=== PATIENT | female | born 1960 | race Caucasian/White ===

== ENCOUNTER 2019-09-25 11:15 | Inpatient (IN) ==
--- NOTE | 2019-09-01 16:20 | PAT Medication Instructions ---
Medication Instructions Date of Service September 01, 2019 Home Medications ascorbic acid (vitamin C) [Vitamin C] 125 mg PO QAM calcium carb-mag oxide-vit D3 [Calcium Magnesium + D] 1 tab PO QAM cholecalciferol (vitamin D3) [Vitamin D3] 400 unit PO QAM colchicine [Colcrys] 0.6 mg PO QAM cyclobenzaprine 5 mg PO TID PRN estradiol [Vagifem] 10 mcg VAGINAL DAILY PRN insulin aspart U-100 [Novolog U-100 Insulin aspart] See Rx Instructions .ROUTE .COMPLEX levothyroxine [Synthroid] 75 mcg PO 6XWK meclizine 25 mg PO DAILY PRN mv-mn-folic ac-vit K-herb 289 [Alive Once Daily Women 50 Plus] 1 tab PO QAM naproxen sodium 220 mg PO 3XWK omega-3 fatty acids-fish oil [Fish Oil] 1 cap PO QAM ramipril [Altace] 2.5 mg PO QAM rosuvastatin [Crestor] 10 mg PO 3XWK triamcinolone acetonide [Nasacort] 1 spray INTRANASAL HS turmeric root extract 1,000 mg PO QAM vitamin E 400 unit PO QAM zolpidem [Ambien] 5 mg PO HS PRN Continue as directed levothyroxine [Synthroid] 75 mcg PO 6XWK rosuvastatin [Crestor] 10 mg PO 3XWK ASK your surgeon for instructions naproxen sodium 220 mg PO 3XWK STOP taking 2 weeks before surgery (or as soon as possible if surgery is within 2 weeks) omega-3 fatty acids-fish oil [Fish Oil] 1 cap PO QAM turmeric root extract 1,000 mg PO QAM vitamin E 400 unit PO QAM STOP taking 48 hours before surgery colchicine [Colcrys] 0.6 mg PO QAM DO NOT take the morning of surgery ascorbic acid (vitamin C) [Vitamin C] 125 mg PO QAM calcium carb-mag oxide-vit D3 [Calcium Magnesium + D] 1 tab PO QAM cholecalciferol (vitamin D3) [Vitamin D3] 400 unit PO QAM cyclobenzaprine 5 mg PO TID PRN estradiol [Vagifem] 10 mcg VAGINAL DAILY PRN [Alive Once Daily Women 50 Plus] 1 tab PO QAM ramipril [Altace] 2.5 mg PO QAM Take morning of surgery With a small sip of water, OTHERWISE NOTHING TO EAT OR DRINK AFTER MIDNIGHT: meclizine 25 mg PO DAILY PRN (if needed) Take evening before surgery cyclobenzaprine 5 mg PO TID PRN (if needed) meclizine 25 mg PO DAILY PRN (if needed) triamcinolone acetonide [Nasacort] 1 spray INTRANASAL HS zolpidem [Ambien] 5 mg PO HS PRN (if needed) Insulin Dependent Diabetic Patients *Morning of surgery, set insulin pump to basal settings- do not bolus* Other Notes If you have any questions please call us at [phone] or [phone] or [phone] or [phone]
--- NOTE | 2019-09-04 13:33 | Anesthesiology Consultation ---
Date of Service September 04, 2019 Assessment & Plan (1) Encounter for pre-operative examination: - Awaiting review preop testing (labs, EKG, CXR). - Awaiting surgeon-ordered PCP preop evaluation scheduled 09/07 (Dr. [place]). - Check [facility] AM DOS Chart Review Chart Review: Patient seen in Pre Admission Testing Teaching & Discussion Pre-Anesthesia Teaching/Discussion Notes: Instructed NPO after midnight before surgery,except medications with 15 cc of water. Medication instructions provided according to the PAT guidelines. History Surgery Operation Date: 09/25/19 09:50 Proposed Procedures p Left Total Knee Revision - Viral Roland Height/Weight Height: 5 ft 3 in Weight: 57.8 kg Allergies Allergy/AdvReac Type Severity Reaction Status Date / Time ciprofloxacin [From Cipro] Allergy Unknown N/V Verified 09/04/19 13:58 Penicillins Allergy Unknown Hives Verified 08/30/19 16:00 codeine AdvReac Unknown nausea Verified 09/04/19 13:58 Sulfa (Sulfonamide AdvReac Unknown mouth sores Verified 09/04/19 13:58 Antibiotics) Medications Home Medications Medication Instructions Recorded Confirmed Last Taken ascorbic acid (vitamin C) [Vitamin 125 mg PO QAM 08/30/19 08/30/19 Unknown C] calcium carb-mag oxide-vit D3 1 tab PO QAM 08/30/19 08/30/19 Unknown [Calcium Magnesium + D] cholecalciferol (vitamin D3) 400 unit PO QAM 08/30/19 08/30/19 Unknown [Vitamin D3] colchicine [Colcrys] 0.6 mg PO QAM 08/30/19 08/30/19 Unknown cyclobenzaprine 5 mg PO TID PRN 08/30/19 08/30/19 Unknown estradiol [Vagifem] 10 mcg VAGINAL DAILY PRN 08/30/19 08/30/19 Unknown insulin aspart U-100 [Novolog See Rx Instructions .ROUTE .COMPLEX 08/30/19 08/30/19 Unknown U-100 Insulin aspart] levothyroxine [Synthroid] 75 mcg PO 6XWK 08/30/19 08/30/19 Unknown meclizine 25 mg PO DAILY PRN 08/30/19 08/30/19 Unknown mv-mn-folic ac-vit K-herb 289 1 tab PO QAM 08/30/19 08/30/19 Unknown [Alive Once Daily Women 50 Plus] naproxen sodium 220 mg PO 3XWK 08/30/19 08/30/19 Unknown omega-3 fatty acids-fish oil [Fish 1 cap PO QAM 08/30/19 08/30/19 Unknown Oil] ramipril [Altace] 2.5 mg PO QAM 08/30/19 08/30/19 Unknown rosuvastatin [Crestor] 10 mg PO 3XWK 08/30/19 08/30/19 Unknown triamcinolone acetonide [Nasacort] 1 spray INTRANASAL HS 08/30/19 08/30/19 Unknown turmeric root extract 1,000 mg PO QAM 08/30/19 08/30/19 Unknown vitamin E 400 unit PO QAM 08/30/19 08/30/19 Unknown zolpidem [Ambien] 5 mg PO HS PRN 08/30/19 08/30/19 Unknown Past Medical History Medical History Diabetes mellitus type 1 + insulin pump 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 on ramipril for renal protection Exercise / Class Metabolic Activity III < 4 Walking/Shop/Light housework Past Surgical History Surgical History History of carpal tunnel release of both wrists History of knee replacement procedure of left knee History of knee replacement procedure of right knee History of meniscectomy of left knee History of meniscectomy of right knee History of tonsillectomy and adenoidectomy Hx of cholecystectomy Hx of hand surgery TRIGGER FINGER RELEASE Hx of laser photocoagulation of retina BOTH EYES Hx of resection of small bowel Past Anesthesia History No Hx of Anesthesia Complications (except PONV) and No Family Hx of Anesthesia Complications History of PONV History of PONV () and Hx of Motion Sickness Social History Smoking Status: Never smoker Do You Dip or Chew Tobacco: No Hx Alcohol Use: Yes Alcohol type: wine alcohol intake frequency: holidays/special occasions only Hx Substance Use: No Review of Systems Patient denies chest pain, shortness of breath, reflux, cough, wheezing, palpitations. Physical Exam Vital Signs VITALS BP 111/73 P 72 TEMP 98.3 SP02 100%RA RESP 18 PHYSICAL Full neck and c-spine range of motion. Full TMJ range of motion. TMD 3.5 finger breaths Mallampati Score 1 Dentition: broken tooth left side (possibly being repaired prior to surgery/will notify surgeon). several crowns on molars Lungs: clear throughout to auscultation Cardiac: regular rate and rhythm, no murmurs noted Spine: normal Carotid arteries: negative bruit Extremities: no edema
--- NOTE | 2019-09-04 14:55 | XRay Report ---
XR chest Pre-admission PA/Lat HISTORY: 59 years-old Female pat preoperative exam. No acute chest complaints COMPARISON: None available TECHNIQUE: PA and lateral views of the chest FINDINGS: Cardiomediastinal and hilar silhouettes are within normal limits. No pneumothorax, pleural effusion, focal airspace consolidation or overt pulmonary edema. Bones of the chest appear grossly intact. Dege nerative changes of the shoulders and spine. Cholecystectomy. IMPRESSION: No acute process. The above report was generated using voice recognition software. It may contain grammatical, syntax o r spelling errors. Electronically signed by: Daniele Pardo M.D. 09/04/2019 2:53 PM
[2019-09-04 15:42] LABS: Appearance Urine Clear (Clear); Bilirubin Urine Negative (Negative); Blood Urine Negative (Negative); Color Urine Yellow; Glucose Urine UA Negative (Negative); Ketones Urine Negative (Negative); Leukocyte Esterase Urine Negative (Negative); Nitrite Urine Negative (Negative); Protein Urine Negative (Negative); Urobilinogen Urine Negative (Negative)
[2019-09-04 15:45] LABS: Basophils # (auto) 0.03 K/uL (0-0.2); Basophils % (auto) 0.5 %; Eosinophils % (auto) 1.5 %; Hematocrit (blood only) 39.5 % (37-47); Hemoglobin 13.6 g/dL (12.0-16.0); Immature Granulocytes # (auto) 0.01 K/uL (0.00-0.02); Immature Granulocytes % (auto) 0.2 %; Lymphocytes # (auto) 1.79 K/uL (1.2-3.4); Lymphocytes % (auto) 27.5 %; Mean Corpuscular Hemoglobin 30.4 pg (25-34); Mean Corpuscular Hgb Conc 34.4 g/dL (32-36); Mean Corpuscular Volume 88.4 fL (80-100); Mean Platelet Volume 9.3 fL (7.4-10.4); Monocytes # (auto) 0.64 K/uL (0.11-0.59); Monocytes % (auto) 9.8 %; Neutrophils # (auto) 3.93 K/uL (1.4-6.5); Neutrophils % (auto) 60.5 %; Platelet Count 295 K/uL (130-400); RDW Coefficient of Variation 13.1 % (11.5-14.5); RDW Standard Deviation 42.8 fL (36.4-46.3); Red Blood Count 4.47 M/uL (4.2-5.4)
[2019-09-04 15:54] LABS: Partial Thromboplastin Ratio 0.9; Partial Thromboplastin Time 24.9 Seconds (21.0-31.0); Prothrombin Time 10.5 Seconds (9.0-12.0)
[2019-09-04 16:22] LABS: Albumin Level 3.9 gm/dl (3.4-5.0); BUN Creatinine Ratio 12.4 (10-20); Calcium 9.5 mg/dl (8.5-10.1); Creatinine Clr Calc Pharmacy 50.9 ml/min; Est GFR (African American) 74.9; Est GFR (Non-African American) 64.6; Potassium 3.7 mmol/L (3.5-5.1)
[2019-09-04 16:25] LABS: Albumin Globulin Ratio 1.3 (0.9-2); Bilirubin,Total 0.4 mg/dl (0.2-1); Globulin 3.1 gm/dl (2.5-4.0)
[2019-09-05 05:28] LABS: Estimated Average Glucose 171 mg/dl; Hemoglobin A1C 7.6 % (4.5-5.6)
--- NOTE | 2019-09-21 15:03 | History & Physical Report ---
Date of Service September 21, 2019 Assessment & Plan (1) Aseptic loosening of prosthetic knee: Plan is to admit and undergo revision left tka, both components. History of Present Illness Chief Complaint: left knee pain Primary Care Provider: DO Ramsey Reyna female had bilateral tka years ago. Has been doing well, now with loose tka, left. Workup for infection was negative. Right knee doing well with no pain. Pain has been persistent therefore decided to undergo revision surgery. Allergies Allergy/AdvReac Type Severity Reaction Status Date / Time Penicillins Allergy Unknown Hives Verified 08/30/19 16:00 ciprofloxacin [From Cipro] AdvReac Unknown N/V Verified 09/20/19 15:18 codeine AdvReac Unknown nausea Verified 09/04/19 13:58 Sulfa (Sulfonamide AdvReac Unknown mouth sores Verified 09/04/19 13:58 Antibiotics) Home Medications Home Medications Medication Instructions Recorded Confirmed Type ascorbic acid (vitamin C) [Vitamin 125 mg PO QAM 08/30/19 08/30/19 History C] calcium carb-mag oxide-vit D3 1 tab PO QAM 08/30/19 08/30/19 History [Calcium Magnesium + D] cholecalciferol (vitamin D3) 400 unit PO QAM 08/30/19 08/30/19 History [Vitamin D3] colchicine [Colcrys] 0.6 mg PO QAM 08/30/19 08/30/19 History cyclobenzaprine 5 mg PO TID PRN 08/30/19 08/30/19 History estradiol [Vagifem] 10 mcg VAGINAL DAILY PRN 08/30/19 08/30/19 History insulin aspart U-100 [Novolog See Rx Instructions .ROUTE .COMPLEX 08/30/19 08/30/19 History U-100 Insulin aspart] levothyroxine [Synthroid] 75 mcg PO 6XWK 08/30/19 08/30/19 History meclizine 25 mg PO DAILY PRN 08/30/19 08/30/19 History mv-mn-folic ac-vit K-herb 289 1 tab PO QAM 08/30/19 08/30/19 History [Alive Once Daily Women 50 Plus] naproxen sodium 220 mg PO 3XWK 08/30/19 08/30/19 History omega-3 fatty acids-fish oil [Fish 1 cap PO QAM 08/30/19 08/30/19 History Oil] ramipril [Altace] 2.5 mg PO QAM 08/30/19 08/30/19 History rosuvastatin [Crestor] 10 mg PO 3XWK 08/30/19 08/30/19 History triamcinolone acetonide [Nasacort] 1 spray INTRANASAL HS 08/30/19 08/30/19 History turmeric root extract 1,000 mg PO QAM 08/30/19 08/30/19 History vitamin E 400 unit PO QAM 08/30/19 08/30/19 History zolpidem [Ambien] 5 mg PO HS PRN 08/30/19 08/30/19 History Past Med/Surg History Medical History Diabetes mellitus type 1 + insulin pump 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 on ramipril for renal protection Surgical History History of carpal tunnel release of both wrists History of knee replacement procedure of left knee History of knee replacement procedure of right knee History of meniscectomy of left knee History of meniscectomy of right knee History of tonsillectomy and adenoidectomy Hx of cholecystectomy Hx of hand surgery TRIGGER FINGER RELEASE Hx of laser photocoagulation of retina BOTH EYES Hx of resection of small bowel Social History Preferred Language: Dominican Communication Ability: Effective Beliefs That Will Affect Care: None Current Living Situation: Spouse Feels Safe at Home: Yes Safety Concerns: Feels Safe At This Time Smoking Status: Never smoker Do You Dip or Chew Tobacco: No ; Second Hand Exposure: No ; Hx Alcohol Use: Yes Alcohol type: wine Hx Substance Use: No Review of Systems All systems reviewed & are unremarkable except as noted in HPI & below Physical Exam Constitutional: WD/WN, vitals as above Respiratory: normal respiratory effort, lungs clear to auscultation Cardiovascular: RRR, no murmur, no edema Gastrointestinal (Abdomen): normal bowel sounds, soft, nontender, no hepatosplenomegaly Musculoskeletal: Knee: + effusion, + surgical incision, + knee ROM with crepitation and + varus laxity
[~2019-09-25 11:15] MED LIST: ACETAMINOPHEN 500 MG TAB PO SCH; BUPIVACAINE 0.5 % 5 MG/1 ML PF 10ML VIAL ONE; BUPIVACAINE/EPINEPHRINE 0.25% 1:200,000 30 ML VIAL ONE; CEFAZOLIN 1000MG 1,000 MG/7.5 ML SYR IV SCH; CeleBREX 200 MG CAP PO SCH; FAMOTIDINE 20 MG TAB PO SCH; LR 15ML/HR IV SCH; LR 60ML/HR IV SCH; METOCLOPRAMIDE HCL 10 MG TABLET PO SCH; MIDAZOLAM HCL 1 MG/ML 2ML VIAL ONE; ROPIVACAINE 0.5% HCL/PF 150 MG, BUPIVACAINE 0.5% MPF 30 ML, EPINEPHrine 30MG/30ML (OR U... INSTIL SCH; TRANEXAMIC ACID 1,000 MG **IV Intra-op IV SCH; TRANEXAMIC ACID 1,000 MG **IV Pre-op IV SCH; dexAMETHasone 4 MG TAB PO SCH; fentaNYL citrate 100 MCG/2 ML VIAL ONE
[2019-09-25] MEDS ORDERED: ONDANSETRON INJ 2 MG/ML 2 ML VIAL ONE (11:25)
[2019-09-25] MEDS ORDERED: PROPOFOL IV EMULSION 10 MG/ML 20 ML VIAL IV ONE ×2 (11:25→14:44)
[2019-09-25] MEDS ORDERED: LIDOCAINE HCL 2% 2 ML VIAL/AMP(20MG/ML) INFIL ONE (11:25)
[2019-09-25] MEDS ORDERED: BACITRACIN INJ 50,000 UNIT VIAL ONE (11:33)
[2019-09-25] MEDS ORDERED: ORTHO JOINT ANESTHETIC ONE (11:33)
[2019-09-25] MEDS ORDERED: CEFAZOLIN 1000MG 1,000 MG/7.5 ML SYR IV SCH (12:08)
--- NOTE | 2019-09-25 12:11 | History & Physical Bridge Note ---
Date of Service September 25, 2019 History & Physical Bridge Note I have examined the patient, reviewed the History & Physical and in the interval since the performance of the History & Physical I have noted the following changes of clinical significance: no changes noted
[2019-09-25] MEDS ORDERED: SCOPOLAMINE 1.5 MG TDSY ONE (12:23)
[2019-09-25] MEDS ORDERED: SCOPOLAMINE 1.5 MG TDSY TD SCH (12:29)
[2019-09-25] MEDS ORDERED: ePHEDrine sulfate 50 MG/ML AMP IV PRN (13:00)
[2019-09-25] MEDS ORDERED: ATROPINE SULFATE 0.1 MG/ML 10ML SYR IV PRN (13:00)
[2019-09-25] MEDS ORDERED: ONDANSETRON INJ 2 MG/ML 2 ML VIAL IV PRN ×2 (13:00→16:15)
[2019-09-25] MEDS ORDERED: MIDAZOLAM HCL 1 MG/ML 2ML VIAL ONE (13:32)
--- NOTE | 2019-09-25 14:47 | Post Operative Brief Note ---
Immediate Post Op Note v1 Date of Surgery September 25, 2019 Pre & Post Diagnosis Operation Date: 09/25/19 14:10 Pre-Op Diagnosis: Left Knee Complications D/T Internal Orthopedic Device/Aseptic Loosening left total knee Post-Op Diagnosis: Left Knee Complications D/T Internal Orthopedic Device/aseptic loosening left total knee I identified the patient and participated in the time-out.: Yes Procedure Operation Date: 09/25/19 14:10 Actual Procedures p Left Total Knee Revision(Left) Both components - Viral Roland Surgeon Viral Roland Inside Sales Advertising Executive Alli Diego PAc Estimated Blood Loss 20 Findings Consistent with Post-Op Diagnosis
--- NOTE | 2019-09-25 14:55 | Operative Report ---
Post Operative Report Pre & Post Diagnosis Operation Date: 09/25/19 14:10 Pre-Op Diagnosis: Left Knee Complications D/T Internal Orthopedic Device/Aseptic Loosening left total knee Post-Op Diagnosis: Left Knee Complications D/T Internal Orthopedic Deviceaseptic loosening left total knee I identified the patient and participated in the time-out.: Yes Procedure Operation Date: 09/25/19 14:10 Actual Procedures p Left Total Knee Revision(Left) Both components- Viral Roland Surgeon Viral Roland Corporate Services Manager Alli Diego PAc Estimated Blood Loss 20 Findings Consistent with Post-Op Diagnosis Specimens none Complications none Disposition Accompanied Patient To Recovery: No Disposition: Recovery Room Description of Procedure IMPLANTS USED: Urban triathlon size 2 TS femoral component with a 15 x 100 mm cemented stem, multiple augments distally and posteriorly, a size 9 TS polyethylene, a size 1 universal baseplate with a bilobed metaphyseal augment, with a 75 mm stem. (For a Urban knee) INDICATIONS: Mrs. Mancia is a pleasant (male/female) who has unfortunately failed all forms of conservative measures. She was identified of having a loose femur and tibia component, patient had bilateral total knee arthroplasty by myself approximately 11 years ago. Work-up for infection was negative which consisted of sed rate and CRP and aspiration of fluid left knee. Patient does have history of significant rheumatoid arthritis and type 1 diabetes. Because of her persistent pain and difficulty with ambulation she therefore, they have decided to undergo elective surgical intervention. All risks and benefits of the surgery were discussed with the patient and the family in entirety. PROCEDURE: The patient was brought to the operating room and properly identified by myself, anesthesia, and staff. Patient was given a spinal anesthesia and placed on the operating table in the supine position. Tourniquets were applied to the left upper thigh. The leg was then prepped and draped in usual sterile fashion. We made a standard midline approach over the patella and dissected down through the subcutaneous tissue to identify the capsule and performed a medial capsulotomy with the patella everted and the knee flexed. Her skin was very thin but we did make sure that we made full-thickness skin flaps on the medial and lateral side. Upon visual inspection there was some slight clear fluid otherwise no pus noted anywhere, then removed all the scar tissue from the medial and lateral gutters and from the suprapatellar pouch. I could easily see some scar tissue growing underneath the anterior flange of the femoral component. I then removed the polyethylene and on inspection of the polyethylene it appeared quite healthy. Then placed retractors on the medial lateral side and posteriorly to bring the tibia anteriorly and then again using multiple flexible osteotomes curettes and a TPS saw I was able to easily remove the tibia and the femur. I then put in a airline pilot/first officer hole in the femur, put the IM cutting guide into place in and began to ream to the appropriate size. I then put the cutting guide to place which was a size to then made appropriate cleanup cuts on the tibia the distal and posterior side which were size 10 mm augments. Then continue with the tibia reamed the appropriate size and then using the metaphyseal augment reamer down to a size C. Then made a cleanup cut off at this of approximately 2 mm off of the proximal tibia. There appeared to be a small defect present on the medial side approximately 5 mm therefore decided to use the bilobed metaphyseal augment. The tibia measured a size 1. We used the tibial punch then put the trial components into place. We had very good range of motion, excellent stability, and excellent patella tracking. We removed the trial components and irrigated the wound. We impacted the components in place using antibiotic cement. All excess cement was removed. We then irrigated the wound once more. We closed the capsule with 0 PDS suture, deep dermis with 2-0 Vicryl, and finally the skin with merlin. A sterile dressing was applied. The patient was taken to the recovery room in stable condition. Due to the complex nature of the procedure, the entire surgery was performed with the operational assistance of Alli Gonzalez PA-C. The inventory control assistant was under direct supervision, was involved in the actual performance of all aspects of the surgical procedure including hemostasis, tissue retraction and incision, instrument management, patient positioning, and wound closure. I attest to the content of the Intraoperative Record and any orders documented therein. Any exceptions are noted below.
--- NOTE | 2019-09-25 15:43 | Anesthesiology Progress Note ---
Date of Service September 25, 2019 Anesthesia Post Procedure Vital Signs Vital Signs: Temp Pulse Pulse Resp BP Pulse Ox 09/25/19 15:40 100 H 16 105/47 L 99 09/25/19 15:30 101 H 18 106/47 L 100 09/25/19 15:24 36.9 C 101 H 20 96/66 L 100 09/25/19 11:47 36.5 C 96 H 18 147/83 H 97 Transfer of Care Handoff Completed per policy Notes Mental Status: alert / awake / arousable and participated in evaluation Nausea / Vomiting: adequately controlled Pain: adequately controlled Airway Patency, RR, SpO2: stable & adequate BP & HR: stable & adequate Hydration State: stable & adequate Neuraxial Anesthesia: was administered and sensory block is resolving Anesthetic Complications: no major complications apparent and Pt Satisfied with anesthetic care
[2019-09-25] MEDS ORDERED: CHECK SCOPOLAMINE PATCH PLACEMENT SCH (16:00)
[2019-09-25] MEDS ORDERED: MAGNESIUM HYDROXIDE SUSP 30 ML UDC PO PRN (16:15)
[2019-09-25] MEDS ORDERED: NALOXONE HCL 0.4 MG/1 ML VIAL/CARP IV PRN (16:15)
[2019-09-25] MEDS ORDERED: INSULIN ASPART PER UNIT SQ SCH (16:15)
[2019-09-25] MEDS ORDERED: BISACODYL 10 MG SUPP PR PRN (16:15)
[2019-09-25] MEDS ORDERED: ZOLPIDEM TARTRATE 5 MG TAB PO PRN (16:15)
[2019-09-25] MEDS ORDERED: METOCLOPRAMIDE HCL INJ 5 MG/ML 2 ML VIAL IV PRN (16:15)
[2019-09-25] MEDS ORDERED: Nursing to Pharmacy Communication ONE (16:16)
[2019-09-25] MEDS ORDERED: CYCLOBENZAPRINE HCL 10 MG TAB PO PRN (16:17)
[2019-09-25] MEDS ORDERED: MECLIZINE HCL 25 MG TAB PO PRN (16:32)
[2019-09-25] MEDS ORDERED: PHARMACY GLYCEMIC MGMT CONSULT PRN (16:50)
[2019-09-25] MEDS ORDERED: GLUCAGON FOR INJ 1 MG VIAL SQ PRN (17:00)
[2019-09-25] MEDS ORDERED: CARBOHYDRATES FOR HYPOGLYCEMIA PO PRN (17:00)
[2019-09-25] MEDS ORDERED: GLUCOSE 10 TABS/TUBE PO PRN (17:00)
[2019-09-25] MEDS ORDERED: DEXTROSE 50% 50 ML SYRINGE IV PRN (17:00)
[2019-09-25] MEDS ORDERED: GLUCOSE 40% GEL 15 GM TUBE PO PRN (17:00)
[2019-09-25] MEDS ORDERED: INSULIN ASPART 100 UNITS/ML VIAL SC PRN (17:00)
[2019-09-25] MEDS: SODIUM CHLORIDE 0.9% 1000ML 1,000 ML IV SCH (17:41)
[2019-09-25] MEDS: NovoLOG INSULIN PUMP SCH ×2 (18:20→21:47)
[2019-09-25] MEDS ORDERED: TRIAMCINOLONE ACET NASAL SPRAY 10.8ML BTL SCH (21:00)
[2019-09-25] MEDS ORDERED: SENNA 8.6 MG TAB PO SCH (21:00)
[2019-09-25] MEDS ORDERED: ROSUVASTATIN CALCIUM 10 MG TAB PO SCH (21:00)
[2019-09-25] MEDS: DOCUSATE SODIUM 100 MG CAP PO SCH (21:19)
[2019-09-25] MEDS: ACETAMINOPHEN 500 MG TAB PO SCH (21:20)
[2019-09-25] MEDS: ASPIRIN 81 MG ECTAB PO SCH (21:22)
[2019-09-25] MEDS: CEFAZOLIN 2000MG 2,000 MG/15 ML SYR IV SCH (21:27)
[2019-09-26] MEDS: SODIUM CHLORIDE 0.9% 1000ML 1,000 ML IV SCH (02:24)
[2019-09-26] MEDS ORDERED: Nursing to Pharmacy Communication ONE (02:28)
[2019-09-26] MEDS: ACETAMINOPHEN 500 MG TAB PO SCH (05:47)
[2019-09-26] MEDS: CEFAZOLIN 2000MG 2,000 MG/15 ML SYR IV SCH (05:47)
[2019-09-26] MEDS ORDERED: LEVOTHYROXINE SODIUM 75 MCG TABLET PO SCH (06:30)
[2019-09-26 07:07] LABS: Hematocrit (blood only) 33.6 % (37-47); Hemoglobin 11.6 g/dL (12.0-16.0); Mean Corpuscular Hemoglobin 30.4 pg (25-34); Mean Corpuscular Hgb Conc 34.5 g/dL (32-36); Mean Platelet Volume 9.2 fL (7.4-10.4); Platelet Count 236 K/uL (130-400); RDW Coefficient of Variation 12.7 % (11.5-14.5); Red Blood Count 3.82 M/uL (4.2-5.4); White Blood Count 14.66 K/uL (4.8-10.8)
[2019-09-26 07:37] LABS: BUN Creatinine Ratio 20.4 (10-20); Calcium 8.5 mg/dl (8.5-10.1); Creatinine Clr Calc Pharmacy 43.1 ml/min; Est GFR (African American) 61.4; Potassium 4.5 mmol/L (3.5-5.1)
[2019-09-26] MEDS: OXYCODONE HCL IR 5 MG TAB (IMMEDIATE RELEASE) PO PRN ×2 (08:05→13:24)
--- NOTE | 2019-09-26 08:11 | Anesthesiology Progress Note ---
Date of Service September 26, 2019 Anesthesia Post Procedure Vital Signs Vital Signs: Temp Pulse Pulse Pulse Resp BP Pulse Ox 09/26/19 07:33 36.6 C 64 16 105/63 98 09/26/19 04:00 36.5 C 65 16 111/62 98 09/25/19 23:30 36.5 C 71 16 93/55 L 95 09/25/19 19:00 36.6 C 83 17 107/66 96 09/25/19 18:00 36.5 C 95 H 17 111/62 100 09/25/19 16:59 36.5 C 101 H 18 100/62 100 09/25/19 16:30 37.1 C 102 H 18 96/56 L 97 09/25/19 16:00 36.6 C 103 H 16 100/52 L 99 09/25/19 15:50 36.9 C 100 H 16 100/45 L 99 09/25/19 15:40 100 H 16 105/47 L 99 09/25/19 15:30 101 H 18 106/47 L 100 09/25/19 15:24 36.9 C 101 H 20 96/66 L 100 09/25/19 11:47 36.5 C 96 H 18 147/83 H 97 Notes Mental Status: alert / awake / arousable and participated in evaluation Patient Amnestic to Procedure: Yes Nausea / Vomiting: adequately controlled Pain: adequately controlled Airway Patency, RR, SpO2: stable & adequate BP & HR: stable & adequate Hydration State: stable & adequate Neuraxial Anesthesia: was administered and sensory block resolved Anesthetic Complications: no major complications apparent and Pt Satisfied with anesthetic care
--- NOTE | 2019-09-26 08:30 | Orthopedic Progress Note ---
Date of Service September 26, 2019 Assessment & Plan (1) Aseptic loosening of prosthetic knee: Postop day 1 status post left revision TKA. Mild leukocytosis-likely due to surgical stress and preoperative steroids. PT/OT protocols. Weightbearing as tolerated. DVT prophylaxis-aspirin twice daily, AV impulse boots. Pain management as written Discharge planning-home health services upon discharge Subjective Postop day 1 status post revision left TKA. Patient currently sitting up in bed awake and alert. He wants to get out of the chair for her breakfast. No overt pain in the knee but she states that she has had some muscle spasms off and on during the night which she normally gets at home. This is not been accentuated. Denies shortness of breath, chest pain, lightheadedness. She is hoping to go home today. Physical Exam Physical Exam: Dressings are clean, dry, and intact. Calves are soft and nontender. Neurovascular is intact. Toes are mobile. She has good dorsiflexion and plantarflexion. Results & Data Vital Signs (Past 12 Hours) Vital Signs Temp Pulse Resp BP Pulse Ox 09/26/19 07:33 36.6 C 64 16 105/63 98 09/26/19 04:00 36.5 C 65 16 111/62 98 09/25/19 23:30 36.5 C 71 16 93/55 L 95 Laboratory Results Laboratory Results WBC 14.66 K/uL (4.8-10.8) H 09/26/19 06:19 RBC 3.82 M/uL (4.2-5.4) L 09/26/19 06:19 Hgb 11.6 g/dL (12.0-16.0) L 09/26/19 06:19 Hct 33.6 % (37-47) L 09/26/19 06:19 MCV 88.0 fL (80-100) 09/26/19 06:19 MCH 30.4 pg (25-34) 09/26/19 06:19 MCHC 34.5 g/dL (32-36) 09/26/19 06:19 RDW Std Deviation 41.0 fL (36.4-46.3) 09/26/19 06:19 RDW Coeff of Chanel 12.7 % (11.5-14.5) 09/26/19 06:19 Plt Count 236 K/uL (130-400) 09/26/19 06:19 MPV 9.2 fL (7.4-10.4) 09/26/19 06:19 Immature Gran % (Auto) 0.2 % 09/04/19 14:10 Neut % (Auto) 60.5 % 09/04/19 14:10 Lymph % (Auto) 27.5 % 09/04/19 14:10 [place] % (Auto) 9.8 % 09/04/19 14:10 Eos % (Auto) 1.5 % 09/04/19 14:10 Baso % (Auto) 0.5 % 09/04/19 14:10 Immature Gran # (Auto) 0.01 K/uL (0.00-0.02) 09/04/19 14:10 Neut # (Auto) 3.93 K/uL (1.4-6.5) 09/04/19 14:10 Lymph # (Auto) 1.79 K/uL (1.2-3.4) 09/04/19 14:10 [place] # (Auto) 0.64 K/uL (0.11-0.59) H 09/04/19 14:10 Eos # (Auto) 0.10 K/uL (0-0.5) 09/04/19 14:10 Baso # (Auto) 0.03 K/uL (0-0.2) 09/04/19 14:10 PT 10.5 Seconds (9.0-12.0) 09/04/19 14:10 INR 1.0 (0.9-1.1) 09/04/19 14:10 APTT 24.9 Seconds (21.0-31.0) 09/04/19 14:10 PTT Ratio 0.9 09/04/19 14:10 Sodium 134 mmol/L (136-145) L 09/26/19 06:19 Potassium 4.5 mmol/L (3.5-5.1) 09/26/19 06:19 Chloride 103 mmol/L (98-107) 09/26/19 06:19 Carbon Dioxide 24 mmol/L (21-32) 09/26/19 06:19 Anion Gap 7.0 (3-11) 09/26/19 06:19 BUN 23 mg/dl (7-18) H 09/26/19 06:19 Creatinine 1.12 mg/dl (0.6-1.2) 09/26/19 06:19 Est Cr Clr Drug Dosing 43.1 ml/min 09/26/19 06:19 Est GFR ( Amer) 61.4 09/26/19 06:19 Est GFR (Non-Af Amer) 53.0 09/26/19 06:19 BUN/Creatinine Ratio 20.4 (10-20) H 09/26/19 06:19 Glucose 205 mg/dl (70-99) H 09/26/19 06:19 POC Glucose 215 (70-99) H 09/26/19 07:56 Estimat Average Glucose 171 mg/dl 09/04/19 14:10 Hemoglobin A1c 7.6 % (4.5-5.6) H 09/04/19 14:10 Calcium 8.5 mg/dl (8.5-10.1) 09/26/19 06:19 Total Bilirubin 0.4 mg/dl (0.2-1) 09/04/19 14:10 AST 19 U/L (15-37) 09/04/19 14:10 ALT 31 U/L (12-78) 09/04/19 14:10 Alkaline Phosphatase 79 U/L (45-117) 09/04/19 14:10 Total Protein 7.0 gm/dl (6.4-8.2) 09/04/19 14:10 Albumin 3.9 gm/dl (3.4-5.0) 09/04/19 14:10 Globulin 3.1 gm/dl (2.5-4.0) 09/04/19 14:10 Albumin/Globulin Ratio 1.3 (0.9-2) 09/04/19 14:10 Urine Color Yellow 09/04/19 Unknown Urine Appearance Clear (Clear) 09/04/19 Unknown Urine pH 7.0 (4.5-7.5) 09/04/19 Unknown Ur Specific [place] 1.010 (1.000-1.030) 09/04/19 Unknown Urine Protein Negative (Negative) 09/04/19 Unknown Urine Glucose (UA) Negative (Negative) 09/04/19 Unknown Urine Ketones Negative (Negative) 09/04/19 Unknown Urine Blood Negative (Negative) 09/04/19 Unknown Urine Nitrite Negative (Negative) 09/04/19 Unknown Urine Bilirubin Negative (Negative) 09/04/19 Unknown Urine Urobilinogen Negative (Negative) 09/04/19 Unknown Ur Leukocyte Esterase Negative (Negative) 09/04/19 Unknown Nasal Screen MRSA (PCR) Negative (Negative) 09/04/19 Unknown Blood Type A Positive 09/25/19 11:59 Antibody Screen NEGATIVE 09/25/19 11:59 Crossmatch See Detail 09/25/19 11:59
[2019-09-26] MEDS ORDERED: COLCHICINE 0.6 MG TAB PO SCH (09:00)
[2019-09-26] MEDS ORDERED: ENALAPRIL MALEATE 10 MG TAB PO SCH (09:00)
[2019-09-26] MEDS: DOCUSATE SODIUM 100 MG CAP PO SCH (09:13)
[2019-09-26] MEDS: NovoLOG INSULIN PUMP SCH ×2 (09:14→12:32)
[2019-09-26] MEDS: ASPIRIN 81 MG ECTAB PO SCH (09:14)
--- NOTE | 2019-09-26 11:28 | Pharmacy Report ---
Glycemic Control Consultation - Date of Service September 26, 2019 - Scope Scope: Glycemic Pharmacist consulted by Dr Roland on 09/26 for glycemic control and to write orders per [facility] inpatient glycemic control protocol - Objective Weight: 51.8 kg Accuchecks BSG (last 24hrs): 09/25/19 09/25/19 09/25/19 11:50 17:17 20:37 Glucose POC Glucose 81 274 H 221 H 09/26/19 09/26/19 06:19 07:56 Glucose 205 H POC Glucose 215 H Laboratory Data (last 24hrs): 09/26/19 06:19 Potassium 4.5 Carbon Dioxide 24 Anion Gap 7.0 Creatinine 1.12 Est Cr Clr Drug Dosing 43.1 HbA1c: Hemoglobin A1c 7.6 % (4.5-5.6) H 09/04/19 14:10 - Recent Pertinent Medications Outpatient Anti-diabetic Regimen: * Novolog pump basal/bolus settings: CF 100, goal 90-150 9224-7989 - 0.4 6610-1656 - 0.325 2432-8085 - 0.45 5284-0571 - 0.475 5009-0301 - 0.450 9082-0072 - 0.35 6498-2532 - 0.425 * Bolus settings: [id number] - 1:20 3276-2399 - 1:22 7961-4770 - 1:20 4671-4804 - 1:25 3708-9837 - 1:20 * A1c = 7.6 % 09/04/19 Risk Factors for Insulin Resistance: * Steroids: received dex 8 mg po on 09/25 * Recent Surgery: POD 1 * Diet: T1DM - Assessment & Plan Assessment & Plan: ASSESSMENT: * 59 year old female now s/p knee revision - Type 1 diabetic managed on insulin pump at home. * Pharmacy consulted for glycemic management postop * Yesterday AM pump adjusted to 75% of basal then to 60% 1-2 hrs preop and then turned off for surgery * Post surgery BSGs trending up as pump was disconnected/also likely from steroids * BSGs trending down this morning, anticipate steroids to be wearing off today * life educator in to talk with patient today. Patient has been on steroids in the past and feels comfortable with adjusting her own pump settings. Temp basal increased today to 125% (around 1100) to provide additional coverage while steroids wearing off. Thank you health educator for assistance * Also went and talked with patient. Feel comfortable that she is able to adjust pump settings herself. Told her that we will be monitoring her in the background and if she were to have any questions to let us know. PLAN FOR INPATIENT GLYCEMIC CONTROL: * Pump - continue patient self management PLAN FOR DISCHARGE: * A1C ~7.6% * A reasonable A1C goal for many non- adults is A1c less than 7% * A1C closer to target goal/appropriate - would not make any changes at discharge * Please note that the plan above was derived based on current level of insulin resistance and hospital stress. These recommendations are appropriate for inpatient admission only. Plan of care upon discharge will need to be reassessed to avoid potential outpatient hypo/hyperglycemia. Thank you.
--- NOTE | 2019-09-27 10:51 | Discharge Summary ---
Date of Service September 27, 2019 Admission HPI Per Admitting Provider Ramsey female had bilateral tka years ago. Has been doing well, now with loose tka, left. Workup for infection was negative. Right knee doing well with no pain. Pain has been persistent therefore decided to undergo revision surgery. Admission Exam Per Admitting Provider Physical Exam Constitutional: WD/WN, vitals as above Respiratory: normal respiratory effort, lungs clear to auscultation Cardiovascular: RRR, no murmur, no edema Gastrointestinal (Abdomen): normal bowel sounds, soft, nontender, no hepatosplenomegaly Musculoskeletal: Knee: + effusion, + surgical incision, + knee ROM with crepitation and + varus laxity Principal Diagnosis Left Knee Complications D/T Internal Orthopedic Deviceaseptic loosening left total knee Discharge Exam Physical Exam: Dressings are clean, dry, and intact. Calves are soft and nontender. Neurovascular is intact. Toes are mobile. She has good dorsiflexion and plantarflexion. Discharge Data Allergies Allergy/AdvReac Type Severity Reaction Status Date / Time Penicillins Allergy Unknown Hives Verified 09/25/19 11:40 ciprofloxacin [From Cipro] AdvReac Unknown N/V Verified 09/25/19 11:40 codeine AdvReac Unknown nausea Verified 09/25/19 11:40 Sulfa (Sulfonamide AdvReac Unknown mouth sores Verified 09/25/19 11:40 Antibiotics) Consultations 09/25/19 16:15 Consult Case Management - Discharge Planning Routine Procedures Performed Operation Date: 09/25/19 14:10 Actual Procedures p Left Total Knee Revision(Left) - Viral Roland Ordered Studies 09/25/19 05:00 US - OR guided needle placemen Routine Hospital Course (1) Aseptic loosening of prosthetic knee: Patient was admitted on the above-noted date and had the above-noted procedure performed which she tolerated well. On her first postoperative day, she was sitting up in her bed awake and alert. She was hoping to get out into her chair for breakfast. Pain was controlled but she was having some mild muscle spasms off and on during the night which she normally gets at home. These have not worsened. She denies shortness of breath, chest pain, lightheadedness. Vital signs are stable and she was afebrile. Hemoglobin was 11.6. She was started on PT and OT protocols and continued on DVT prophylaxis and pain management. She was planning for home health services upon discharge. She was seen later in the day and was progressing well with her physical therapy pain was controlled vitals are stable and it was felt she could be discharged home. Total Time Total Time Spent Total Time Spent (In Minutes): 5 Discharge Plan Discharge Items Patient Disposition: Home - Home Health Services Reason For Visit: Left Knee Complications D/T Internal Orthopedic De Discharge Diagnosis: Aseptic loosening left TKA Activity: Per Instructions section Weightbearing: Left weightbearing Weightbearing Comment: As tolerated with walker Non-emergency contact: Surgeon Call non-emergency contact if: your pain is not controlled, your temperature is above 101.5, your wound has increased redness and your wound has increased drainage Follow-up/Referrals: Henna Murray, [Primary Care Provider] - Diet: Carb Count or DM1 Addtl Attending Provider Instructions: Please follow Dr. Sehridan's total knee arthroplasty instructions. These will be given to at the time of your discharge. Follow-up with Dr. Sheridan in 2 weeks. Please call for appointment if one has not been made for you. [phone] SOMMER dressing - This is a large suction dressing covering your incision. This will help pull any excess drainage from the wound and allow your incision to heal properly. You may shower with this if you can keep the unit outside of the shower. If any bleeding or leakage is noted please call your doctor's office. This will remain on your incision for 7 days and then should be removed. This can be done yourself or by the home nursing staff if applicable. The entire unit is disposable once removed. Once removed, keep incision clean and dry. If redness or drainage is noted, please call your surgeon. Pending Studies at Discharge: No Stand-Alone Forms: [facility] TestCred, Opioid Pain Management, Smoking Cessation Medications and DC Order Prescriptions: New aspirin [Ecotrin Low Strength] 81 mg Tablet,Delayed Release (Dr/Ec) 81 mg PO BID 30 Days Qty: 60 RF: 0 acetaminophen [Tylenol Extra Strength] 500 mg Tablet 1,000 mg PO Q8 14 Days Qty: 84 RF: 0 oxycodone 5 mg Tablet 5 mg PO Q4H PRN (Reason: pain) Qty: 30 RF: 0 sennosides [Senokot] 8.6 mg Tablet 17.2 mg PO HS PRN (Reason: constipation) Qty: 30 RF: 0 doxycycline hyclate 100 mg capsule 100 mg PO BID 14 Days Qty: 28 RF: 1 Continued cyclobenzaprine 10 mg Tablet 5 mg PO TID PRN (Reason: Pain) RF: 0 levothyroxine [Synthroid] 75 mcg Tablet 75 mcg PO 6XWK RF: 0 meclizine 25 mg Tablet 25 mg PO DAILY PRN (Reason: Dizziness) RF: 0 Novolog U-100 Insulin aspart 100 unit/mL Solution See Rx Instructions .ROUTE .COMPLEX RF: 0 ramipril [Altace] 2.5 mg Capsule 2.5 mg PO QAM RF: 0 triamcinolone acetonide [Nasacort] 55 mcg Aerosol,Aneta 1 spray INTRANASAL HS RF: 0 zolpidem [Ambien] 5 mg Tablet 5 mg PO HS PRN (Reason: Sleep) RF: 0 colchicine [Colcrys] 0.6 mg Tablet 0.6 mg PO QAM RF: 0 cholecalciferol (vitamin D3) [Vitamin D3] 400 unit Tablet 400 unit PO QAM RF: 0 vitamin E 400 unit Capsule 400 unit PO QAM RF: 0 rosuvastatin [Crestor] 10 mg Tablet 10 mg PO 3XWK RF: 0 Calcium Magnesium + D 400-167-133 mg-mg-unit Tablet 1 tab PO QAM RF: 0 estradiol [Vagifem] 10 mcg Tablet 10 mcg VAGINAL DAILY PRN (Reason: DRYNESS) RF: 0 turmeric root extract 500 mg Capsule 1,000 mg PO QAM RF: 0 ascorbic acid (vitamin C) [Vitamin C] 125 mg Tablet,Chewable 125 mg PO QAM RF: 0 Alive Once Daily Women 50 Plus 800-100 mcg Tablet 1 tab PO QAM RF: 0 Discontinued naproxen sodium 220 mg Tablet 220 mg PO 3XWK RF: 0 omega-3 fatty acids-fish oil [Fish Oil] 300-1,000 mg Capsule 1 cap PO QAM RF: 0 Discharge Orders: Discharge Order (Routine); Ordered 09/26/19 Ordered By: Alli Tomlinson/Other Patient Handouts: Surgery Prevent DVT After Admission Data Admit Date/Time: 09/25/19 15:27 Attending Provider: Viral Roland Admit Provider: Luan,Viral S Primary Care Provider: Henna Murray Other Interventions: Discharge Summary Assessment (RN) Last Done: 09/26/19 13:00 DC Date/Time DO NOT enter until pt leaves facility: 09/26/19 13:59
== END 2019-09-26 13:59 | disposition home health service (06) | DRG 468 ==
LOC: ASU 11:15 → 3E 15:27